=== PATIENT | female | born 1990 | race Caucasian/White ===

== ENCOUNTER → 2019-10-19 13:15 | Outpatient (BNVA) | payer BC, SELFPAY | PROVIDERS: Referring Provider Obstetrics & Gynecology; Visit Provider Obstetrics & Gynecology | DX: N97.9 Female infertility, unspecified (principal) | CPT/HCPCS: 82670; 83001 ==

== ENCOUNTER → 2019-11-06 14:10 | Outpatient (BNVA) | payer BC, SELFPAY | PROVIDERS: Visit Provider Obstetrics & Gynecology | DX: N97.9 Female infertility, unspecified (principal) | CPT/HCPCS: 84144; 84443 ==

== ENCOUNTER → 2019-12-09 08:55 | Outpatient (BNVA) | payer BC, SELFPAY | PROVIDERS: Referring Provider Obstetrics & Gynecology; Visit Provider Obstetrics & Gynecology | DX: N97.9 Female infertility, unspecified (principal) | CPT/HCPCS: 84144; 84443; 85520 ==

== ENCOUNTER 2020-12-13 09:22 | Outpatient (CLI) | payer BC, SELFPAY ==
[2020-12-13 10:12] LABS: Progesterone 31.16 ng/mL
== END 2020-12-13 09:23 | disposition home or self-care (01) ==
LOC: LAB 09:26
PROVIDERS: PCP Nurse Practitioner; Visit Provider Specialist
DX: R53.83 Other fatigue (principal); E34.9 Endocrine disorder, unspecified; N92.6 Irregular menstruation, unspecified
CPT/HCPCS: 36415; 84144; 84702

== ENCOUNTER 2020-12-15 10:21 | Outpatient (CLI) | payer BC, SELFPAY ==
[2020-12-15 12:17] LABS: Progesterone 21.33 ng/mL
== END 2020-12-15 10:22 | disposition home or self-care (01) ==
PROVIDERS: PCP Nurse Practitioner; Visit Provider Specialist
DX: R53.83 Other fatigue (principal); E34.9 Endocrine disorder, unspecified; N92.6 Irregular menstruation, unspecified
CPT/HCPCS: 36415; 84144; 84702

== ENCOUNTER 2021-04-25 08:29 | Outpatient (CLI) | payer BC, SELFPAY ==
[2021-04-25 09:44] LABS: Progesterone 20.16 ng/mL
== END 2021-04-25 08:30 | disposition home or self-care (01) ==
LOC: LAB 08:44
PROVIDERS: PCP Nurse Practitioner; Visit Provider Specialist
DX: R53.83 Other fatigue (principal); E34.9 Endocrine disorder, unspecified; N92.6 Irregular menstruation, unspecified
CPT/HCPCS: 36415; 84144; 84702

== ENCOUNTER 2021-04-27 08:49 | Outpatient (CLI) | payer BC, SELFPAY ==
[2021-04-27 09:37] LABS: Progesterone 23.77 ng/mL
== END 2021-04-27 08:50 | disposition home or self-care (01) ==
PROVIDERS: PCP Nurse Practitioner; Visit Provider Specialist
DX: R53.83 Other fatigue (principal); N92.6 Irregular menstruation, unspecified; E34.9 Endocrine disorder, unspecified
CPT/HCPCS: 84144; 84702

== ENCOUNTER 2022-03-21 07:55 | Outpatient (RCR) | payer BC, SELFPAY | END 2022-04-15 23:59 | disposition home or self-care (01) | LOC: SPT 07:55 | PROVIDERS: PCP Nurse Practitioner; Referring Provider Obstetrics & Gynecology; Visit Provider Obstetrics & Gynecology | DX: N39.3 Stress incontinence (female) (male) (principal) | CPT/HCPCS: 97110; 97112; 97161; 97530 ==

== ENCOUNTER 2022-04-16 06:00 | Outpatient (RCR) | payer BC, SELFPAY | END 2022-05-16 23:59 | disposition home or self-care (01) | LOC: SPT 06:00 | PROVIDERS: PCP Nurse Practitioner; Referring Provider Obstetrics & Gynecology; Visit Provider Obstetrics & Gynecology | DX: N39.3 Stress incontinence (female) (male) (principal) | CPT/HCPCS: 97110; 97112; 97530 ==

== ENCOUNTER 2022-05-17 06:00 | Outpatient (RCR) | payer BC, SELFPAY | END 2022-06-15 23:59 | disposition home or self-care (01) | LOC: SPT 06:00 | PROVIDERS: PCP Nurse Practitioner; Visit Provider Obstetrics & Gynecology | DX: N39.3 Stress incontinence (female) (male) (principal) | CPT/HCPCS: 97110; 97530 ==